=== PATIENT | female | born 1970 | race Two or more races ===

== ENCOUNTER 2025-02-12 10:47 | Emergency (ER) | payer OTHER ==
[~2025-02-12] VITALS: Ht 157.5 cm; Wt 54.4 kg
[2025-02-12] MEDS ORDERED: DIATRIZOATE MEGLUMINE, SODIUM 30 ML BOTTLE ONE (11:58)
[2025-02-12 12:31] LABS: HEMATOCRIT 41.3 % (36.0-45.00); MEAN CELL VOLUME 97.5 fL (80.00-100.00); MEAN CORPUSCULAR HGB CONC 33.9 g/dl (32.0-36.0); PLATELET COUNT 319 K/uL (150-450); RED BLOOD COUNT 4.23 M/uL (4.00-6.00); RED CELL DISTRIBUTION WIDTH 13.4 % (11.5-14.5)
[2025-02-12 12:56] LABS: CALCIUM 9.6 mg/dL (8.5-10.1); CREATININE SERUM 0.71 mg/dL (0.55-1.02); GFR 85.46; POTASSIUM 4.65 mEq/L (3.5-5.1)
[2025-02-12 13:03] LABS: PH,URINE 6.5 (5.0-8.0); URINE APPEARANCE Clear; URINE BILIRRUBIN Negative (NEGATIVE); URINE BLOOD Negative; URINE COLOR Yellow; URINE GLUCOSE Negative (NEGATIVE); URINE KETONE Negative (NEGATIVE); URINE LEUKOCYTE Negative; URINE NITRATE Negative; URINE PROTEIN Negative (NEGATIVE); URINE UROBILINOGEN 0.2 E.U./dl
[2025-02-12 13:06] LABS: URINE BACTERIA 15.9 uL (0.0-1933); URINE RBC 5.7 uL (0.0-20.8); URINE WBC 2.8 uL (0.0-23.2)
== END 2025-02-12 15:58 | disposition home or self-care (01) ==
LOC: ER 10:48
PROVIDERS: Emergency Medicine
DX: R10.9 Unspecified abdominal pain (principal)
CPT/HCPCS: 36415; 74177; 99284; Q9965